=== PATIENT | female | born 1950 | race Caucasian/White ===

== ENCOUNTER 2024-08-20 09:31 | Emergency (ER) | payer MEDICARE, BC ==
[~2024-08-20] VITALS: Ht 157.5 cm; Wt 116.7 kg
[2024-08-20 09:54] LABS: BASOPHILS % (AUTO) 0.6 % (0-1); EOSINOPHILS # (AUTO) 0.1 X10'3 (0-0.9); EOSINOPHILS % (AUTO) 3.3 % (0-6); HEMATOCRIT 43.1 % (35.0-45.0); HEMOGLOBIN 14.5 g/dl (12.0-16.0); LYMPHOCYTES % (AUTO) 23.6 % (21-51); MEAN CORPUSCULAR HEMOGLOBIN 28.8 PG (27.0-31.0); MEAN CORPUSCULAR HGB CONC 33.6 g/dL (33.0-36.5); MEAN PLATELET VOLUME 7.6 FL (7.4-10.4); MONOCYTES # (AUTO) 0.3 X10'3 (0-0.9); MONOCYTES % (AUTO) 6.6 % (2-12); NEUTROPHILS # (AUTO) 2.7 X10'3 (1.8-7.7); NEUTROPHILS % (AUTO) 65.9 % (42-75); PLATELET COUNT 206 X10'3 (140-440); RED BLOOD COUNT 5.02 X10'6 (4.20-5.60); RED CELL DISTRIBUTION WIDTH 14.4 % (11.5-14.5); WHITE BLOOD COUNT 4.1 X10'3 (4.5-11.0)
[2024-08-20 10:05] LABS: ALANINE AMINOTRANSFERASE 22 U/L (12-78); ALBUMIN 4.1 G/DL (3.4-5.0); ALBUMIN/GLOBULIN RATIO 1.4 (1.1-1.5); ALKALINE PHOSPHATASE 88 IU/L (46-116); ANION GAP 6 (8-16); ASPARTATE AMINO TRANSFERASE 20 U/L (10-37); BILIRUBIN,TOTAL 0.7 MG/DL (0.1-1.0); BLOOD UREA NITROGEN 13 MG/DL (7-18); BUN/CREATININE RATIO 14.3 (10.0-20.0); CHLORIDE 99 MMOL/L (99-107); CREATININE 0.91 MG/DL (0.40-0.90); GLUCOSE 113 MG/DL (70-104); POTASSIUM 3.3 MMOL/L (3.5-5.1); SODIUM 137 MMOL/L (135-145); TOTAL CARBON DIOXIDE 32.1 MMOL/L (24-32); TOTAL PROTEIN 7.1 G/DL (6.4-8.2); eGFR 61 ML/MIN
[2024-08-20 10:12] LABS: PRO BRAIN NATRIURETIC PEPTIDE 262 PG/ML (0-125)
[2024-08-20 12:42] VITALS: BP 124/68; PULSE 63; RESP 16; TEMP 97.9; O2SAT 99
== END 2024-08-20 12:47 | disposition home or self-care (01) ==
LOC: ER 09:32
DX: R07.89 Other chest pain (principal); I10 Essential (primary) hypertension; K21.9 Gastro-esophageal reflux disease without esophagitis; F32.A Depression, unspecified; Z88.5 Allergy status to narcotic agent
CPT/HCPCS: 36415; 71045; 80053; 83880; 84484; 85025; 93005; 99285

== ENCOUNTER 2025-01-09 12:42 | Emergency (ER) | payer MEDICARE, BC ==
[~2025-01-09] VITALS: Ht 147.3 cm; Wt 115.2 kg
--- NOTE | 2025-01-09 12:54 | ELECTROCARDIOGRAPH REPORT ---
[facility] Test Date: 2025-01-09 Test Time: 12:47:41 Pat Name: MALCOLM ANDERSON Department: EMERGENCY ROOM [id number] Room: Gender: F [employer]visor [employer]: OSIEL : 1950 Requested By: ZOILA GAN Order Number: [id number] Reading MD: Measurements Intervals [place] Rate: 66 P: 17 NV: 176 QRS: -29 QRSD: 119 T: 23 QT: 409 QTc: 429 Interpretive Statements Sinus rhythm Incomplete right bundle branch block Anterior infarct, old Please click the below link to view image of tracing.
--- NOTE | 2025-01-09 13:13 | Physician Documentation ---
History of Present Illness General Chief Complaint: Shortness of Breath Stated Complaint: SOB Time Seen by MD: 13:12 History of Present Illness Initial Comments Patient is a 74-year-old female who presents to the emergency room with 2 hours of substernal chest pressure and shortness of breath. Patient states she has intermittently had episodes of chest pressure and shortness of breath in the past she was seen in August in the emergency department sent home and had a nuclear stress test and a echocardiogram which were unremarkable. The patient states she has seen Dr. Araiza in the office and he is the one who ordered the stress test. The patient states that she was at home at rest when she developed shortness of breath and substernal chest pressure similar to the pain she has had in the past. Patient states she has not had any history of significant cardiac disease. The patient denies any fevers chills nausea or vomiting. She does describe to having some weakness at the time of the started this incident 2 hours ago. Medication Reconciliation Allergies: Coded Allergies: codeine (Verified Allergy, Unknown, 08/20/24) Uncoded Allergies: CONTRAST (Allergy, Unknown, 08/20/24) Scheduled Potassium Chloride* (K-Dur*), 1 TAB PO BID Review of Systems All Other Systems at this time: Reviewed and Negative Physical Exam Physical Exam Vital Signs: Temperature: 97.8, Source: Temporal, Heart Rate: 69, Respiratory Rate: 18, BP: 129/53, Pulse Oximetry: 97, Weight: 115.200 Oxygen Flow Rate: 0 Physical Exam VITALS: Reviewed and as above. GENERAL: Alert, no apparent distress. HEENT: Normocephalic, atraumatic, PERRL, EOMI, dry mucosa, no erythema RESPIRATORY: Lungs clear, normal breath sounds, no respiratory distress. CHEST: No accessory muscle use, no retractions CV: Regular rate, rhythm, no edema, no murmur, No: JVD GI: Soft, non-tender, bowels sounds present, no rebound, guarding, or rigidity BACK: No CVA tenderness, or swelling MUSCULOSKELETAL: No deformities, no edema SKIN: Warm and dry, no rash NEURO: Oriented x4, No motor or sensory deficit PSYCH: Normal mood and affect, no agitation Progress Results/Orders Results/Orders Orders - REBEL BOWSER MD Chest,Single View (01/09/25 12:53) Monitor (01/09/25 12:53) Saline Lock (01/09/25 12:53) Oxygen (01/09/25 12:53) Covid19 Binax Poc Result Entry (01/09/25 13:41) Completed Orders - FAITHLREBEL MAY MD Chest,Single View (01/09/25 12:53) Cbc/Diff (01/09/25 12:53) BMP (01/09/25 12:53) PBNP (01/09/25 12:53) Electrocardiogram (01/09/25 12:53) Hs Troponin I W Calculations (01/09/25 12:53) Hs Troponin I W Calculations (01/09/25 14:53) Procalcitonin (01/09/25 13:14) Potassium Cl Sr Tablet (K-Dur Tablet) (01/09/25 14:06) Vital Signs 01/09/25 01/09/25 01/09/25 01/09/25 12:51 13:43 13:51 15:41 Temp 97.8 98.0 Pulse 69 63 67 Resp 18 14 11 15 B/P (MAP) 129/53 134/75 (94) 129/74 Pulse Ox 97 95 99 O2 Flow Rate 0 0 Laboratory Tests Test 01/09/25 13:05 01/09/25 14:38 White Blood Count 4.0 L Red Blood Count 4.64 Hemoglobin 13.7 Hematocrit 39.8 Mean Corpuscular Volume 85.8 Mean Corpuscular Hemoglobin 29.5 Mean Corpuscular Hemoglobin Concent 34.4 Red Cell Distribution Width 14.8 H Platelet Count 181 Mean Platelet Volume 7.6 Neutrophils (%) (Auto) 67.8 Lymphocytes (%) (Auto) 19.6 L Monocytes (%) (Auto) 7.1 Eosinophils (%) (Auto) 4.9 Basophils (%) (Auto) 0.6 Neutrophils # (Auto) 2.7 Lymphocytes # (Auto) 0.8 L Monocytes # (Auto) 0.3 Eosinophils # (Auto) 0.2 Basophils # (Auto) 0.0 CBC Comment Sodium Level 139 Potassium Level 3.1 L Chloride Level 101 Carbon Dioxide Level 30.5 Anion Gap 8 Blood Urea Nitrogen 16 Creatinine 1.15 H Estimated GFR/1.73 m2 46 BUN/Creatinine Ratio 13.9 Glucose Level 159 H Calcium Level 8.8 Troponin I High Sensitivity 24 25 Pro-B-Type Natriuretic Peptide 369 H Albumin 3.8 Procalcitonin < 0.05 Chemistry Comments Troponin I High Sens Percent Delta 4 Troponin I Hi Sens Absolute Change 1 EKG/XRAY/CT/US/VASC/MRI Chest X-Ray : Additional Comments Patient: MALCOLM ANDERSON Medical Record: [id number] [facility] : 1950, Age: 74 Sex: Female Location: ER Patient Status: REG ER Service Date/Time: 01/09/25/ 1253 Ordering Physician: REBEL BOWSER MD Exam: CHEST,SINGLE VIEW CHEST RADIOGRAPH Indication: CP Technique: Single frontal view of the chest was obtained COMPARISON: DI CHEST,SINGLE VIEW on DOS: 08/20/24 FINDINGS: Lines and Tubes: None Lungs: Clear Pleura: No effusion. No pneumothorax. Cardiomediastinal contours: Unremarkable Bones: Unremarkable IMPRESSION: 1. No acute disease. Electronically Signed by:EMPERATRIZ HERMAN MD Date & Time: 01/09/251339 Dictated by: EMPERATRIZ HERMAN MD Dictation date and time: 01/09/251339 Primary Care Provider: NO PRIMARY CARE PROVIDER cc: REBEL BOWSER MD ~ Medical Decision Making Findings Patient's EKG was interpreted by me it shows a sinus rhythm with a left axis deviation and rate of 66 there was also a right bundle-branch block and Q-waves anteriorly. The EKG was interpreted as an abnormal EKG and compared the EKG to her prior EKG in it was unchanged. The patient's symptoms are not ischemic sounding, she has no exertional chest pain plus she has had a recent cardiac workup to include a stress test as an outpatient. The patient's workup here in the emergency room demonstrated a unchanged EKG and negative troponins. The chest x-ray was Imaging reviewed by attending physician Dr. Bowser. I have independently interpreted the chest x-ray as showing a normal appearing chest x- ray she has normal-appearing lung vazquez normal-appearing bony structures and normal-appearing mediastinum. The patient is in no distress she is hemodynamically stable all labs were reviewed prior hospitalizations were reviewed the patient will be discharged with instructions to follow up as an outpatient Departure Disposition: HOME / SELF CARE / HOMELESS Impression: Primary Impression: Chest pain with low risk for cardiac etiology Additional Impression: Hypokalemia Discharge Instructions: Nonspecific Chest Pain, Adult, [id number] Additional Instructions: Follow up with the Dr. Araiza. Return if your symptoms worsen. Referrals: NO PRIMARY CARE PROVIDER (PCP) Prescriptions Potassium Chloride* (K-Dur*) 20 Meq Tab.prt.sr 1 TAB PO BID, #14 TAB Prov: REBEL BOWSER MD 01/09/25 Signature Scribe Signature: no scribe Attestation: The note accurately reflects work and decisions made by me.Rebel Bowser MD 01/11/25 05:29 REBEL BOWSER MD Jan 09, 2025 13:13
[2025-01-09 13:33] LABS: MEAN PLATELET VOLUME 7.6 FL (7.4-10.4); RED CELL DISTRIBUTION WIDTH 14.8 % (11.5-14.5)
--- NOTE | 2025-01-09 13:43 | RADIOLOGY REPORT ---
CHEST RADIOGRAPH Indication: CP Technique: Single frontal view of the chest was obtained COMPARISON: DI CHEST,SINGLE VIEW on DOS: 08/20/24 FINDINGS: Lines and Tubes: None Lungs: Clear Pleura: No effusion. No pneumothorax. Cardiomediastinal contours: Unremarkable Bones: Unremarkable IMPRESSION: 1. No acute disease.
[2025-01-09 13:53] LABS: CREATININE 1.15 MG/DL (0.40-0.90); PRO BRAIN NATRIURETIC PEPTIDE 369 PG/ML (0-125); TOTAL CARBON DIOXIDE 30.5 MMOL/L (24-32); eCRCL 29 ML/MIN; eGFR 46 ML/MIN
[2025-01-09] MEDS: potassium Cl 20 mEq SR tablet PO STA (14:40)
[2025-01-09] MEDS ORDERED: POTA-207 PO (15:19)
[2025-01-09 15:41] VITALS: BP 129/74; PULSE 67; RESP 15; TEMP 98; O2SAT 99
== END 2025-01-09 15:44 | disposition home or self-care (01) ==
LOC: ER 12:43
DX: R07.89 Other chest pain (principal); R06.02 Shortness of breath; E87.6 Hypokalemia; Z88.5 Allergy status to narcotic agent
CPT/HCPCS: 36415; 71045; 80048; 83880; 84145; 84484; 85025; 93005; 99285; A4615; J7030

== ENCOUNTER 2025-02-25 09:07 | Outpatient (CLI) | payer MEDICARE, BC ==
--- NOTE | 2025-02-25 11:34 | RADIOLOGY REPORT ---
INDICATION: MICROSCOPIC HEMATURIA TECHNIQUE: Multiple real-time sonographic images of the kidneys and bladder were obtained. COMPARISON: None FINDINGS: RIGHT kidney measures 11.3 cm in length. No hydronephrosis. LEFT kidney measures 10.4 cm in length. No hydronephrosis. Bilateral renal cysts are present measuring up to 1.7 cm on the right and 1.7 cm on the left. No large intraluminal masses are seen in the bladder. Post void residual of 14 cc. IMPRESSION: 1. Unremarkable examination.
== END 2025-02-25 23:59 | disposition home or self-care (01) ==
LOC: RAD 09:07
PROVIDERS: ATTEND Nurse Practitioner Family
DX: N28.1 Cyst of kidney, acquired (principal); R31.29 Other microscopic hematuria
CPT/HCPCS: 76770